=== PATIENT | female | born 1960 ===

== ENCOUNTER 2020-01-06 13:50 | Outpatient (CLI) | payer MEDICAID, SELFPAY ==
[2020-01-09 13:40] LABS: Method Summary See Comments; SARS-CoV-2 RNA Undetected (Undetected); SARS-CoV-2 Specimen Source Nasal
== END 2020-01-06 14:10 ==
PROVIDERS: Visit Provider Family Medicine
DX: Z11.59 Encounter for screening for other viral diseases (principal)
CPT/HCPCS: U0003

== ENCOUNTER 2020-03-02 17:22 | Outpatient (REF) | payer MEDICAID, SELFPAY ==
[2020-03-04 16:21] LABS: SARS-CoV-2 RNA Undetected (Undetected); SARS-CoV-2 Specimen Source Nasal
== END 2020-03-02 17:42 ==
LOC: LBN 17:22
PROVIDERS: Visit Provider Nurse Practitioner Adult Health
DX: Z11.59 Encounter for screening for other viral diseases (principal)
CPT/HCPCS: U0003

== ENCOUNTER 2020-03-26 19:11 | Outpatient (REF) | payer MEDICAID, SELFPAY ==
[2020-03-29 14:50] LABS: SARS-CoV-2 RNA Not Detected (NotDetected)
[2020-03-29 15:07] LABS: SARS-CoV-2 RNA Source Nasal/Nares
== END 2020-03-26 19:31 ==
LOC: LBN 19:11
PROVIDERS: Visit Provider Nurse Practitioner Adult Health
DX: Z11.59 Encounter for screening for other viral diseases (principal)
CPT/HCPCS: U0003